=== PATIENT | female | born 1925 | race Caucasian/White ===

== ENCOUNTER 2016-08-11 07:47 | Outpatient (CLI) | payer MEDICARE, OTHER ==
[2016-07-17 16:56] VITALS: BP 145/72
[2016-08-11 08:13] LABS: BASOPHILS % 0.6 (0.0-1.5); EOSINOPHILS % 5.2 % (0.0-6.8); LYMPHOCYTES # 1.4 # k/uL (0.6-4.0); MEAN CORPUSCULAR HEMOGLOBIN 31.6 pg (28.0-34.0); MONOCYTES # 0.4 # k/uL (0.0-0.9); MONOCYTES % 7.8 % (0.0-11.0)
[2016-08-11 08:39] LABS: eGFR (African) 42; eGFR (Non-African) 35
== END 2016-08-11 07:50 ==
LOC: LAB 07:47
PROVIDERS: ATTEND Internal Medicine Cardiovascular Disease
DX: I10 Essential (primary) hypertension (principal); E03.9 Hypothyroidism, unspecified; I48.0 Paroxysmal atrial fibrillation
CPT/HCPCS: 36415; 80053; 84439; 84443; 85025